=== PATIENT | female | born 2000 | race African-American/Black ===

== ENCOUNTER 2020-03-15 08:19 | Emergency (ER) | payer BC ==
[~2020-03-15] VITALS: Ht 165.1 cm; Wt 62.6 kg
--- NOTE | 2020-03-15 08:50 | NUR ---
ED Nurse Note: Urine sent to lab.
[2020-03-15 08:52] VITALS: BP 115/83
--- NOTE | 2020-03-15 08:52 | NUR ---
ED Nurse Note: Pt walked in to ED from home c/o abdominal paina dn nausea x couple of weeks. Denies vomiting/ diarrhea. Hx of gastritis. Afebrile. AAOx4, verbally responsive. No SOB, on room air. ERMD at bedside.
[2020-03-15 09:16] LABS: APPEARANCE,URINE SLIGHTLY CLOUDY; BILIRUBIN, URINE NEGATIVE (NEGATIVE); GLUCOSE, URINE (UA) NEGATIVE (NEGATIVE); KETONES,URINE 1+ (NEGATIVE); LEUKOCYTE ESTERASE ,URINE 1+ (NEGATIVE); NITRITE,URINE NEGATIVE (NEGATIVE); PH,URINE 6 (4.5-8.0); PROTEIN,URINE 2+ (NEGATIVE); UROBILINOGEN,URINE 1 MG/DL (0.0-1.0)
[2020-03-15 09:20] LABS: COLOR,URINE YELLOW
--- NOTE | 2020-03-15 09:23 | Emergency Room Report ---
History of Present Illness General Chief Complaint: Abdominal Pain Source: Patient Present Illness HPI Patient is a 20-year-old female presents for increased right-sided abdominal pain. Associated nausea and vomiting. Denies any hematemesis. Onset of symptoms for the past 3 days. Decreased appetite. Denies any prior abdominal surgeries. Had no associated cough or shortness of breath. Denies any recent coronavirus exposure. Does not smoke or have any recent alcohol use. Denies being . Denies hematemesis or bloody stools. No diarrhea. 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 COVID-19 Screening: Negative COVID-19 COVID-19 Testing Source: nov Patient History Past Medical History: see triage record Last Menstrual Period: feb 21 Now: No Reviewed Nursing Documentation: PMH: Agreed; PSxH: Agreed Nursing Documentation-PMH Past Medical History: No History, Except For Hx Gastrointestinal Problems: Yes - gastritis Review of Systems All Other Systems: negative except mentioned in HPI Physical Exam Vital Signs Date Time Temp Pulse Resp B/P (MAP) Pulse Ox O2 Delivery O2 Flow Rate FiO2 03/15/20 08:40 98.6 95 16 115/83 (94) 97 Room Air Sp02 EP Interpretation: reviewed, normal General Appearance: normal inspection, well appearing, no apparent distress, alert, GCS 15, non-toxic Head: atraumatic ENT: normal ENT inspection, hearing grossly normal, normal voice Neck: normal inspection, full range of motion, supple, no bony tend Respiratory: normal inspection, lungs clear, normal breath sounds, no respiratory distress, no retraction, no wheezing Cardiovascular #1: regular rate, rhythm, no edema Gastrointestinal: normal inspection, normal bowel sounds, non tender, soft, no guarding, no hernia Genitourinary: no CVA tenderness Musculoskeletal: normal inspection, back normal, normal range of motion Neurologic: alert, motor strength/tone normal, sales project manager III-XII nml as tested, oriented x3, responsive, speech normal, normal inspection Psychiatric: normal inspection, judgement/insight normal, mood/affect normal Medical Decision Making Diagnostic Impression: Primary Impression: Nonspecific abdominal pain ER Course Patient presented for abdominal pain. Differential diagnosis include was not limited to gastritis, ulcer, cholecystitis, pancreatitis among others. Because of complexity of patient's case laboratory tests and imaging studies were ordered. Patient reportedly been having multiple episodes of emesis. test was negative. She is started on IV fluids. She is given IV antiemetics.Patient reported having improvement in symptoms after medications. Laboratory testing was unremarkable. Patient was advised outpatient coronavirus testing. She advised to return if any worsening condition or other concerns. This medical record is generated with [employer] security software engineer software. There may be some security software engineer discrepancies related to use of this software Labs Test 03/15/20 08:50 03/15/20 09:43 Urine Color Yellow Urine Appearance Slightly cloudy Urine pH 6 (4.5-8.0) Urine Specific Lillian 1.020 (1.005-1.035) Urine Protein 2+ (NEGATIVE) Urine Glucose (UA) Negative (NEGATIVE) Urine Ketones 1+ (NEGATIVE) Urine Blood 1+ (NEGATIVE) Urine Nitrite Negative (NEGATIVE) Urine Bilirubin Negative (NEGATIVE) Urine Urobilinogen 1 MG/DL (0.0-1.0) Urine Leukocyte Esterase 1+ (NEGATIVE) Urine RBC 0-2 /HPF (0 - 2) Urine WBC 2-4 /HPF (0 - 2) Urine Squamous Epithelial Cells Many /LPF (NONE/OCC) Urine Bacteria Few /HPF (NONE) Urine Mucus Few /LPF (NONE/OCC) Urine HCG, Qualitative Negative (NEGATIVE) White Blood Count 3.0 K/UL (4.8-10.8) Red Blood Count 4.42 M/UL (4.20-5.40) Hemoglobin 11.7 G/DL (12.0-16.0) Hematocrit 36.9 % (37.0-47.0) Mean Corpuscular Volume 83 FL (80-99) Mean Corpuscular Hemoglobin 26.5 PG (27.0-31.0) Mean Corpuscular Hemoglobin Concent 31.8 G/DL (32.0-36.0) Red Cell Distribution Width 16.7 % (11.6-14.8) Platelet Count 185 K/UL (150-450) Mean Platelet Volume 7.3 FL (6.5-10.1) Neutrophils (%) (Auto) % (45.0-75.0) Lymphocytes (%) (Auto) % (20.0-45.0) Monocytes (%) (Auto) % (1.0-10.0) Eosinophils (%) (Auto) % (0.0-3.0) Basophils (%) (Auto) % (0.0-2.0) Differential Total Cells Counted 100 Neutrophils % (Manual) 41 % (45-75) Lymphocytes % (Manual) 52 % (20-45) Monocytes % (Manual) 7 % (1-10) Eosinophils % (Manual) 0 % (0-3) Basophils % (Manual) 0 % (0-2) Band Neutrophils 0 % (0-8) Platelet Estimate Adequate Platelet Morphology Normal Anisocytosis 1+ Sodium Level 138 MMOL/L (136-145) Potassium Level 4.0 MMOL/L (3.5-5.1) Chloride Level 105 MMOL/L (98-107) Carbon Dioxide Level 25 MMOL/L (21-32) Anion Gap 8 mmol/L (5-15) Blood Urea Nitrogen 12 mg/dL (7-18) Creatinine 0.8 MG/DL (0.55-1.30) Estimat Glomerular Filtration Rate > 60 mL/min (>60) Glucose Level 75 MG/DL (74-106) Calcium Level 9.2 MG/DL (8.5-10.1) Total Bilirubin 0.3 MG/DL (0.2-1.0) Aspartate Amino Transf (AST/SGOT) 19 U/L (15-37) Alanine Aminotransferase (ALT/SGPT) 17 U/L (12-78) Alkaline Phosphatase 54 U/L (46-116) Total Protein 7.7 G/DL (6.4-8.2) Albumin 3.7 G/DL (3.4-5.0) Globulin 4.0 g/dL Albumin/Globulin Ratio 0.9 (1.0-2.7) Lipase 109 U/L (73-393) Last Vital Signs Date Time Temp Pulse Resp B/P (MAP) Pulse Ox O2 Delivery O2 Flow Rate FiO2 03/15/20 08:52 95 16 Room Air 03/15/20 08:52 98.6 115/83 97 Status: improved Disposition: HOME, SELF-CARE Condition: Stable Scripts Ondansetron (Zofran) 4 Mg Tablet 4 MG ORAL Q6H PRN for Nausea & Vomiting, #30 TAB 0 Refills Prov: Roland Travis MD 03/15/20 Roland Travis MD Mar 15, 2020 09:23
[2020-03-15] MEDS ORDERED: Mylanta II UD 30ml ORAL ONE (09:30)
--- NOTE | 2020-03-15 09:42 | NUR ---
ED Nurse Note: IV line established. Blood sent to lab.
--- NOTE | 2020-03-15 09:43 | NUR ---
Sean schumacher in EDM - 03/15/20 at 0954 by KAYLEIGH ED Note: IV line established. Júnior
--- NOTE | 2020-03-15 09:53 | NUR ---
ED Nurse Note: US at bedside.
[2020-03-15] MEDS ORDERED: ZOFRAN4 MG ORAL (09:54)
[2020-03-15 10:02] LABS: ANION GAP 8 mmol/L (5-15); BLOOD UREA NITROGEN 12 mg/dL (7-18); CALCIUM 9.2 MG/DL (8.5-10.1); CARBON DIOXIDE 25 MMOL/L (21-32); CHLORIDE 105 MMOL/L (98-107); CREATININE 0.8 MG/DL (0.55-1.30); SODIUM 138 MMOL/L (136-145)
[2020-03-15 10:07] LABS: ALANINE AMINOTRANSFERASE 17 U/L (12-78); ALBUMIN 3.7 G/DL (3.4-5.0); ALBUMIN/GLOBULIN RATIO 0.9 (1.0-2.7); ALKALINE PHOSPHATASE 54 U/L (46-116); ASPARTATE AMINO TRANSFERASE 19 U/L (15-37); BILIRUBIN,TOTAL 0.3 MG/DL (0.2-1.0)
--- NOTE | 2020-03-15 10:17 | Diagnostic Imaging Report ---
EXAM: US Abdomen Complete CLINICAL HISTORY: PAIN TECHNIQUE: Real-time ultrasound of the abdomen with image documentation. COMPARISON: None FINDINGS: Liver: Liver measures 13.3 cm. No focal lesion. No intrahepatic bile duct dilation. Gallbladder: No gallstones or sludge. No significant gallbladder wall thickening or pericholecystic fluid. Common bile duct: Common bile duct measuring 2.3 mm. No stones. No dilation. Pancreas: Visualized portions of the pancreas are grossly unremarkable. Kidneys: Right kidney measures 9.6 cm in length. No hydronephrosis or stone. Left kidney measures 9.6 cm in length. Nodular versus or stone. Spleen: Spleen measures 8.7 cm. No focal lesion. Aorta: Visualized portions of the aorta are grossly unremarkable. Inferior vena cava: Visualized portions of the IVC are grossly unremarkable. Other vasculature: Patent main portal vein with normal directional flow. Free fluid: No ascites. IMPRESSION: No acute findings in the abdomen.
[2020-03-15 10:23] LABS: HEMATOCRIT 36.9 % (37.0-47.0); HEMOGLOBIN 11.7 G/DL (12.0-16.0); MEAN CORPUSCULAR VOLUME 83 FL (80-99); PLATELET COUNT 185 K/UL (150-450); RED BLOOD COUNT 4.42 M/UL (4.20-5.40); RED CELL DISTRIBUTION WIDTH 16.7 % (11.6-14.8)
[2020-03-15 10:52] VITALS: BP 121/74
--- NOTE | 2020-03-15 10:52 | NUR ---
ED Nurse Note: Pt cleared by ERMD for discharge. DC instructions/prescription was given and explained to pt and verbalized understanding of teachings. All medical deviecs such as ID band and IV line removed. Pt is AAO x4, ambulatory and left with all personal belongings.
== END 2020-03-15 10:52 | disposition home or self-care (01) ==
LOC: EMR 09:22
DX: R10.9 Unspecified abdominal pain (principal); R11.2 Nausea with vomiting, unspecified; Z87.19 Personal history of other diseases of the digestive system
CPT/HCPCS: 36415; 76700; 80053; 81003; 81025; 83690; 85007; 85025; 96361; 96374; 99284; J2405; J7030